=== PATIENT | male | born 1945 | race American Indian/Alaskan Native ===

== ENCOUNTER 2017-04-07 11:32 | Day surgery (SDC) | payer BC ==
[~2017-04-07 11:32] MED LIST: AK-Dilate ONE; IOPIDINE ONE; IOPIDINE OU ONE; MYDRIACYL ONE
[2017-04-07] MEDS ORDERED: IOPIDINE OU ONE ×2 (12:02→12:57)
[2017-04-07] MEDS ORDERED: MYDRIACYL OU ONE (12:02)
[2017-04-07] MEDS ORDERED: AK-Dilate OU ONE (12:02)
[2017-04-07 13:42] VITALS: BP 120/70
== END 2017-04-07 13:03 | disposition home or self-care (01) ==
LOC: OR 11:32
PROVIDERS: ATTEND Ophthalmology
DX: H26.493 Other secondary cataract, bilateral (principal)